=== PATIENT | female | born 1935 | race Caucasian/White ===

== ENCOUNTER 2020-12-15 10:45 | Emergency (ER) | payer OTHER ==
[2020-12-15 11:20] VITALS: BMI 28.3
[2020-12-15 12:40] LABS: BASO % 0.8 % (0-2.0); EOS % 0.5 % (0-4.5); HEMATOCRIT 38.9 % (32.4-45.2); LYMPH % 18.8 % (8-40); MCH 30.9 pg (25.7-33.7); MCHC 33.5 g/dl (32.0-36.0); MEAN CELL VOLUME 92.2 fl (80-96); MEAN PLT VOLUME 7.9 fl (7.5-11.1); MONO % 9.6 % (3.8-10.2); NEUT % 70.3 % (42.8-82.8); PLATELET COUNT 281 10^3/uL (134-434); RBC 4.22 M/mm3 (3.60-5.2); WHITE BLOOD COUNT 9.4 K/mm3 (4.0-10.0)
[2020-12-15 12:42] LABS: PH,URINE 5.5 (5.0-8.0); URINE APPEARANCE CLEAR; URINE BILIRUBIN NEGATIVE (NEGATIVE); URINE COLOR YELLOW; URINE GLUCOSE (UA) NEGATIVE (NEGATIVE); URINE KETONE NEGATIVE (NEGATIVE); URINE LEUK ESTERASE NEGATIVE (NEGATIVE); URINE NITRITE NEGATIVE (NEGATIVE); URINE PROTEIN NEGATIVE (NEGATIVE); URINE UROBILINOGEN 0.2 mg/dL (0.2-1.0)
[2020-12-15 12:58] LABS: CHLORIDE 97 mmol/L (98-107); SODIUM 128 mmol/L (136-145)
[2020-12-15 13:00] LABS: CALCIUM 9.4 mg/dL (8.5-10.1)
[2020-12-15 13:01] LABS: ANION GAP 7 MMOL/L (8-16); BLOOD UREA NITROGEN 15.5 mg/dL (7-18); CO2 24 mmol/L (21-32); GLUCOSE,RANDOM 117 mg/dL (74-106)
[2020-12-15 13:04] LABS: CREATININE 0.9 mg/dL (0.55-1.3); SGOT/AST 47 U/L (15-37); SGPT/ALT 24 U/L (13-61)
[2020-12-15 13:05] LABS: TOT PROT 7.5 g/dl (6.4-8.2)
[2020-12-15 13:06] LABS: BILIRUBIN,TOTAL 0.8 mg/dL (0.2-1)
[2020-12-15 13:07] LABS: ALK PHOS 119 U/L (45-117)
[2020-12-15] MEDS ORDERED: SODIUM CHLORIDE 0.9% 500 ML INFUS.BAG IV ONE (13:08)
[2020-12-15 15:44] LABS: BLOOD UREA NITROGEN 13.7 mg/dL (7-18); CALCIUM 9.1 mg/dL (8.5-10.1)
[2020-12-15 15:48] LABS: CREATININE 0.7 mg/dL (0.55-1.3)
[2020-12-15] MEDS ORDERED: ACETAMINOPHEN 325 MG TABLET (FP) ONE (22:06)
[2020-12-15] MEDS ORDERED: ACETAMINOPHEN 325 MG TABLET (FP) PO ONE (22:09)
[2020-12-16 07:34] VITALS: TEMP 97.7
[2020-12-16 10:24] VITALS: BP 151/76; PULSE 83
== END 2020-12-16 10:49 | disposition home or self-care (01) ==
LOC: JER 10:45
DX: R29.6 Repeated falls (principal)
CPT/HCPCS: 36415; 70450-TC; 72125-TC; 72170-TC-FY; 80048; 80053; 81003; 84484; 85025; 87086; 93005; 93010; 99285-25

== ENCOUNTER 2021-03-19 04:45 | Day surgery (SDC) | payer OTHER ==
[2021-03-18 09:49] VITALS: BMI 29.2
[2021-03-19] MEDS ORDERED: BUPIVACAINE HCL/PF 0.75% 10 ML VIAL ONE (07:21)
[2021-03-19] MEDS ORDERED: BUPIVACAINE HCL/PF 0.5% (5MG/ML) 10 ML VIAL ONE (07:22)
[2021-03-19] MEDS ORDERED: LIDOCAINE HCL/PF 1% SDV 5ML VIAL ONE (07:31)
[2021-03-19] MEDS ORDERED: LIDOCAINE HCL 1% PRESERVATIVE FREE - 30ML VIAL IJ ONE (10:39)
[2021-03-19] MEDS ORDERED: DEXAMETHASONE SOD PHOSPHATE 10 MG/1 ML VIAL IM ONE (10:39)
[2021-03-19] MEDS ORDERED: IOHEXOL 180 MG/1 ML ML IJ ONE (10:40)
[2021-03-19 11:50] VITALS: BP 130/66; PULSE 68; TEMP 98
== END 2021-03-19 11:45 | disposition home or self-care (01) ==
LOC: JASU-SURG 04:45
PROVIDERS: ATTEND Pain Medicine Pain Medicine
PROC: 3E0R33Z Introduction of Anti-inflammatory into Spinal Canal, Percutaneous Approach (ICD-10-PCS; 2021-03-19)
PROC: 3E0R3BZ Introduction of Anesthetic Agent into Spinal Canal, Percutaneous Approach (ICD-10-PCS; principal; 2021-03-19 08:00)
DX: M54.16 Radiculopathy, lumbar region (principal); I10 Essential (primary) hypertension; E11.9 Type 2 diabetes mellitus without complications
CPT/HCPCS: 76000-TC-FY; J1100

== ENCOUNTER 2021-04-26 04:24 | Day surgery (SDC) | payer OTHER ==
[2021-04-25 12:31] VITALS: BMI 29.2
[2021-04-26] MEDS ORDERED: IOHEXOL 180 MG/1 ML ML IJ ONE (12:27)
[2021-04-26] MEDS ORDERED: DEXAMETHASONE SOD PHOSPHATE 10 MG/1 ML VIAL IM ONE (12:33)
[2021-04-26] MEDS ORDERED: LIDOCAINE HCL 1% PRESERVATIVE FREE - 30ML VIAL IJ ONE (12:33)
[2021-04-26 13:34] VITALS: BP 146/63; PULSE 70; TEMP 97.9
== END 2021-04-26 13:30 | disposition home or self-care (01) ==
LOC: JASU-SURG 04:24
PROVIDERS: ATTEND Pain Medicine Pain Medicine
PROC: 3E0R33Z Introduction of Anti-inflammatory into Spinal Canal, Percutaneous Approach (ICD-10-PCS; 2021-04-26)
PROC: 3E0R3BZ Introduction of Anesthetic Agent into Spinal Canal, Percutaneous Approach (ICD-10-PCS; principal; 2021-04-26 12:00)
DX: M48.061 Spinal stenosis, lumbar region without neurogenic claudication (principal); M54.16 Radiculopathy, lumbar region
CPT/HCPCS: 76000-TC-FY; J1100

== ENCOUNTER 2021-06-14 04:13 | Day surgery (SDC) | payer OTHER ==
[2021-05-29 09:59] VITALS: BMI 29.2
[2021-06-14] MEDS ORDERED: DEXAMETHASONE SOD PHOSPHATE 10 MG/1 ML VIAL ONE ×2 (07:17→07:30)
[2021-06-14] MEDS ORDERED: SODIUM CHLORIDE 0.9% P/F 10 ML VIAL IJ ONE (07:22)
[2021-06-14] MEDS ORDERED: LIDOCAINE HCL/PF 2% SDV 5ML VIAL ONE (07:27)
[2021-06-14] MEDS ORDERED: LIDOCAINE HCL/PF 1% SDV 5ML VIAL ONE ×2 (07:31→12:00)
[2021-06-14] MEDS ORDERED: PROPOFOL 20 ML ONE (11:26)
[2021-06-14] MEDS ORDERED: IOHEXOL 180 MG/1 ML ML IJ ONE (11:29)
[2021-06-14] MEDS ORDERED: LIDOCAINE HCL 1% PRESERVATIVE FREE - 30ML VIAL IJ ONE ×2 (11:30→11:32)
[2021-06-14] MEDS ORDERED: DEXAMETHASONE SOD PHOSPHATE 10 MG/1 ML VIAL IVPUSH ONE ×2 (11:30→11:39)
[2021-06-14 12:12] VITALS: TEMP 97.5
[2021-06-14 12:52] VITALS: BP 135/77; PULSE 74
== END 2021-06-14 13:22 | disposition home or self-care (01) ==
LOC: JASU-SURG 04:13
PROVIDERS: ATTEND Pain Medicine Pain Medicine
PROC: 3E0R33Z Introduction of Anti-inflammatory into Spinal Canal, Percutaneous Approach (ICD-10-PCS; 2021-06-14)
PROC: B01BYZZ Fluoroscopy of Spinal Cord using Other Contrast (ICD-10-PCS; 2021-06-14)
PROC: 3E0R3BZ Introduction of Anesthetic Agent into Spinal Canal, Percutaneous Approach (ICD-10-PCS; principal; 2021-06-14 08:00)
DX: M54.16 Radiculopathy, lumbar region (principal); M48.061 Spinal stenosis, lumbar region without neurogenic claudication; I10 Essential (primary) hypertension; E11.9 Type 2 diabetes mellitus without complications
CPT/HCPCS: 76000-TC-FY; J1100

== ENCOUNTER 2025-01-13 06:03 | Day surgery (SDC) | payer OTHER ==
[2025-01-11 13:38] VITALS: BMI 26.5
[2025-01-13] MEDS ORDERED: ACETAMINOPHEN 500 MG TABLET (FP) PO PRN (08:42)
[2025-01-13 10:20] VITALS: BP 114/58; PULSE 63; RESP 18; TEMP 98.4
== END 2025-01-13 11:02 | disposition home or self-care (01) ==
LOC: JASU-SURG 06:03
PROVIDERS: ATTEND Pain Medicine Pain Medicine
PROC: 01HY3MZ Insertion of Neurostimulator Lead into Peripheral Nerve, Percutaneous Approach (ICD-10-PCS; principal; 2025-01-13 09:35)
DX: G89.4 Chronic pain syndrome (principal)
CPT/HCPCS: 64555; C1778; 76000-TC-FY